=== PATIENT | female | born 1985 | race Caucasian/White ===

== ENCOUNTER 2019-03-02 09:36 | Emergency (ER) | payer SELFPAY ==
[2019-03-02 10:24] VITALS: BP 103/62
--- NOTE | 2019-03-02 10:30 | UC ---
Respiratory Complaint HPI - HPI Summary HPI Summary: Patient has been ill for 3 weeks with cough and cold symptoms. Today she continues to have chest congestion and sinus pressure. She does have asthma. She just finished a Z-Shaheen 4 days ago and a prednisone taper. - History of Current Complaint Chief Complaint: UCRespiratory Stated Complaint: COUGH,CHEST CONGESTION Time Seen by Provider: 03/02/19 10:22 Hx Obtained From: Patient Hx Last Menstrual Period: 02/09/19 ?: Yes Onset/Duration: Gradual Onset Timing: Intermittent Episodes Severity Initially: Mild Severity Currently: Mild Pain Intensity: 5 Character: Cough: Productive Aggravating Factors: Nothing - Productive of yellowish sputum. Alleviating Factors: Nothing Associated Signs And Symptoms: Positive: URI, Nasal Congestion, Sinus Discomfort - Allergies/Home Medications Allergies/Adverse Reactions: Allergies Allergy/AdvReac Type Severity Reaction Status Date / Time amoxicillin Allergy Hives Verified 03/02/19 10:24 Penicillins Allergy Hives Verified 03/02/19 10:24 Home Medications: Home Medications Budesonide/Formote 80/4.5(NF) [Symbicort 80/4.5 (NF)] 1 puff INH BID 03/02/19 [ History Confirmed 03/02/19] Cyclobenzaprine TAB* [Flexeril 10 MG TAB*] 10 mg PO 03/02/19 [History] HYDROcodone/ACETAMIN 5-325 MG* [Newberry 5-325 TAB*] 1 tab PO Q4H PRN 03/02/19 [ History Confirmed 03/02/19] SUMAtriptan TAB* [Imitrex TAB*] 25 mg PO SEE INSTRUCTIONS 03/02/19 [History Confirmed 03/02/19] PMH/Surg Hx/FS Hx/Imm Hx Previously Healthy: Yes Respiratory History: Asthma - Surgical History Surgical History: Yes Surgery Procedure, Year, and Place: back surgery - Family History Known Family History: Positive: Non-Contributory - Social History Occupation: Employed Full-time Alcohol Use: Rare Substance Use Type: None Smoking Status (MU): Never Smoked Tobacco Review of Systems All Other Systems Reviewed And Are Negative: Yes ENT: Positive: Nasal Discharge, Sinus Congestion, Sinus Pain/Tenderness Respiratory: Positive: Cough - Productive cough of yellowish sputum Is Patient Immunocompromised?: No Physical Exam Triage Information Reviewed: Yes Appearance: Well-Appearing, No Pain Distress, Well-Nourished Vital Signs: Initial Vital Signs Temp 97 F 03/02/19 10:19 Pulse 91 03/02/19 10:19 Resp 18 03/02/19 10:19 BP 103/62 03/02/19 10:19 Pulse Ox 99 03/02/19 10:19 Vital Signs Reviewed: Yes Eyes: Positive: Conjunctiva Clear ENT: Positive: Hearing grossly normal, Pharynx normal, Nasal congestion, Nasal drainage - Yellow nasal coryza with inflamed turbinates and swelling., TMs normal, Sinus tenderness - Left maxillary sinus tenderness on palpation., Uvula midline Neck exam: Normal Neck: Positive: Supple, Nontender, No Lymphadenopathy Respiratory: Positive: Lungs clear, Normal breath sounds, No respiratory distress, No accessory muscle use, Other: - Harsh dry cough. Cardiovascular: Positive: RRR, No Murmur, Pulses Normal, Brisk Capillary Refill Musculoskeletal Exam: Normal Neurological Exam: Normal Psychological Exam: Normal Skin Exam: Normal Respiratory Course/Dx - Course Course Of Treatment: CXR: REPORT: Clear lungs and pleural spaces. Negative for pneumothorax. The heart, pulmonary vasculature, and mediastinal contours are unremarkable. Unremarkable osseous structures and soft tissue contours. IMPRESSION: #. No evidence for acute intrathoracic disease. Patient was given a DuoNeb treatment which she states improved her aeration, her lungs continue to be clear. She does have a harsh cough. I'm going to treat her for a maxillary sinusitis to follow-up with her primary care provider if no improvement in 4- 5 days. - Differential Dx/Diagnosis Provider Diagnosis: Sinusitis Discharge - Sign-Out/Discharge Documenting (check all that apply): Patient Departure All imaging exams completed and their final reports reviewed: Yes - Discharge Plan Condition: Fair Disposition: HOME Prescriptions: DOXYcycline CAP(*) [DOXYcycline 100MG CAP(*)] 100 mg PO DAILY 7 Days #14 cap Patient Education Materials: Sinusitis (ED) Forms: *Work Release Referrals: Non Staff,Doctor [Primary Care Provider] - Care [facility] [Outside] Additional Instructions: Increase fluids, take the Doxycycline with food, no dairy products, antacids or multivitamins 2 hours before you take the doxycycline and 2 hours after you take the doxycycline. Definite follow-up with your primary care provider in one week if no improvement. - Billing Disposition and Condition Condition: FAIR Disposition: Home
[2019-03-02] MEDS ORDERED: Albuterol/Ipratropium NEB.SOL* Albuterol 2.5 MG/Ipratropium 0.5 MG 3 ML INH ONE (10:52)
== END 2019-03-02 11:33 | disposition home or self-care (01) ==
LOC: UCCORT 09:36
DX: J32.9 Chronic sinusitis, unspecified (principal); Z88.0 Allergy status to penicillin; Z79.899 Other long term (current) drug therapy
CPT/HCPCS: 71046; 99202; A9270-GY; G0463